=== PATIENT | female | born 1945 | race Caucasian/White ===

== ENCOUNTER 2022-05-31 18:01 | Emergency (ER) | payer BC ==
[2022-05-31 18:30] LABS: Urine Blood Trace-lysed (Negative); Urine Glucose Negative (Negative); Urine Protein Negative (Negative); Urine Specific Gravity 1.015 (1.005-1.030)
[2022-05-31] MEDS ORDERED: ONDANSETRON 4 MG/2 ML VIAL ONE (18:51)
[2022-05-31] MEDS ORDERED: NA CHLORIDE 0.9% 1,000 ML ONE (18:51)
[2022-05-31] MEDS ORDERED: KETOROLAC 30 MG/ML INJ ONE (18:51)
[2022-05-31 18:52] LABS: Urine Bacteria <20 /HPF (<20); Urine Mucus Slight /HPF (None Seen); Urine RBC <5 /HPF (None Seen)
[2022-05-31 19:06] LABS: Absolute Lymphocytes (CBC) 2.5 K/uL (0.7-4.9); Hematocrit 34.4 % (36.0-45.0); Lymphocytes % 33.8 % (15.3-44.8); MPV 6.9 fL (7.6-11.3); RBC Red Blood Cell Count 3.86 M/uL (3.86-4.86)
[2022-05-31 19:10] LABS: Albumin 3.3 g/dL (3.4-5.0); Bilirubin Total 0.3 mg/dL (0.2-1.0); Potassium 3.9 mmol/L (3.5-5.1); Protein, Total 6.8 g/dL (6.4-8.2)
--- NOTE | 2022-05-31 20:06 | RAD REPORT ---
EXAM DESCRIPTION: CTAbdomen Pelvis W Contrast - 05/31/2022 7:58 pm CLINICAL HISTORY: Abdominal pain. flank pain COMPARISON: No comparisons TECHNIQUE: Biphasic CT imaging of the abdomen and pelvis was performed with 100 ml non-ionic IV cont rast. All CT scans are performed using dose optimization technique as appropriate and may include automated exposure control or mA/KV adjustment according to patient size. FINDINGS: The lung bases are clear. The liver, spleen, pancreas, adrenal glands and kidneys are within normal limits. No bowel obstruction, free air, free fluid or abscess. Significant fecal retention is seen in the col on. Sigmoid diverticulosis coli without diverticulitis. No evidence of significant lymphadenopathy. Aortoiliac atherosclerosis. Mild degenerative changes. IMPRESSION: No acute intra-abdominal or pelvic finding.
--- NOTE | 2022-05-31 20:29 | ER ---
Nurse's Notes [facility] Name: Jeannie Geronimo Age: 76 yrs Sex: Female : 1945 Arrival Date: 05/31/2022 Time: 18:07 Bed 5 Private MD: Diagnosis: Strain of muscle, fascia and tendon of lower back Presentation: 05/31 18:14 Chief complaint: Patient's son or daughter states: for a month she has had a pain on iw right back , she was on amoxicillin for UTI, was still having pain and had urine tested yesterday and was told she still has a UTI , it was sent for culture , ;last night she was having shivers and headache. Coronavirus screen: At this time, the client does not indicate any symptoms associated with coronavirus-19. Ebola Screen: Patient negative for fever greater than or equal to 101.5 degrees Fahrenheit, and additional compatible Ebola Virus Disease symptoms Patient denies exposure to infectious person. Patient denies travel to an Ebola-affected area in the 21 days before illness onset. No symptoms or risks identified at this time. Initial Sepsis Screen: Does the patient meet any 2 criteria? No. Patient's initial sepsis screen is negative. Does the patient have a suspected source of infection? No. Patient's initial sepsis screen is negative. Risk Assessment: Do you want to hurt yourself or someone else? Patient reports no desire to harm self or others. Onset of symptoms was April 2022. 18:14 Method Of Arrival: Ambulatory iw 18:14 Acuity: YAHIR 3 iw Historical: - Allergies: 18:17 No Known Allergies; iw - Home Meds: 18:17 atorvastatin oral [Active]; iw 18:19 gabapentin oral [Active]; calcium [Active]; iw - PMHx: 18:17 Hypercholesterolemia; Anxiety; iw - PSHx: 18:17 hysterectomy; iw Screenin:33 [facility] ED Fall Risk Assessment (Adult) History of falling in the last 3 months, mb9 including since admission No falls in past 3 months (0 pts) Confusion or Disorientation No (0 pts) Intoxicated or Sedated No (0 pts) Impaired Gait No (0 pts) Mobility Assist Device Used No (0 pt) Altered Elimination No (0 pt) Score/Fall Risk Level 0 - 2 = Low Risk Oriented to surroundings, Maintained a safe environment, Educated pt \T\ family on fall prevention, incl call for assistance when getting out of bed. Abuse screen: Denies threats or abuse. Nutritional screening: No deficits noted. Tuberculosis screening: No symptoms or risk factors identified. Assessment: 18:31 General: Appears uncomfortable, Behavior is cooperative. Pain: Complains of pain in mb9 right flank Pain radiates to abdomen Pain currently is 10 out of 10 on a pain scale. Quality of pain is described as aching, sharp, shooting, Is intermittent, Alleviated by nothing. Noted to be grimacing. Neuro: Hinojosa Agitation-Sedation Scale (RASS): 0 - Alert and Calm Level of Consciousness is awake, alert, obeys commands, Oriented to person, place, time, situation, Appropriate for age. Cardiovascular: Heart tones S1 S2 present Capillary refill < 3 seconds is brisk Patient's skin is warm and dry. Rhythm is regular. Respiratory: Airway is patent Respiratory effort is even, unlabored, Respiratory pattern is regular, symmetrical, Breath sounds are clear bilaterally. GI: Abdomen is flat, non-distended, Bowel sounds present X 4 quads. Abd is soft Abdomen is tender to palpation in right lower quadrant and left lower quadrant. : Reports burning with urination, urgency, currently being treated for UTI. EENT: No signs and/or symptoms were reported regarding the EENT system. Derm: Skin is pink, warm \T\ dry. Musculoskeletal: Range of motion: intact in all extremities. 19:50 Reassessment: pt taken to CT via stretcher. mb9 19:59 Reassessment: No changes from previously documented assessment. Patient and/or family mb9 updated on plan of care and expected duration. Pain level reassessed. Patient is alert, oriented x 3, equal unlabored respirations, skin warm/dry/pink. Patient denies pain at this time. Patient states feeling better. Patient states symptoms have improved. 20:39 Reassessment: Patient appears in no apparent distress at this time. Patient and/or jb4 family updated on plan of care and expected duration. Pain level reassessed. Patient is alert, oriented x 3, equal unlabored respirations, skin warm/dry/pink. Vital Signs: 18:14 BP 138 / 56; Pulse 98; Resp 16; Temp 97.6; Pulse Ox 98% on R/A; iw 18:54 BP 118 / 79; Pulse 88; Resp 17; Pulse Ox 97% ; mb9 19:58 BP 122 / 57; Pulse 66; Resp 16; Pulse Ox 99% on R/A; mb9 ED Course: 18:07 Patient arrived in ED. rg4 18:10 [facility] Ascencio [facility] sb4 18:10 Yasmani Shirley MD is Attending Physician. sb4 18:17 Triage completed. iw 18:17 Arm band placed on. iw 18:20 Placed in gown. Bed in low position. Call light in reach. Side rails up X 1. Client mb9 placed on continuous cardiac and pulse oximetry monitoring. NIBP monitoring applied. Door closed. Noise minimized. Warm blanket given. 18:23 Estephania Kathleen, RN is Primary Nurse. ph 18:30 Inserted saline lock: 18 gauge in right antecubital area, using aseptic technique. mb9 Blood collected. 18:54 CBC with Diff Sent. mb9 18:54 CMP Sent. mb9 18:54 Lipase Sent. mb9 19:57 No provider procedures requiring assistance completed. mb9 19:59 CT Abd/Pelvis - IV Contrast Only In Process Unspecified. EDMS 20:15 Desiree waggoner, ELYSE is Primary Nurse. pf1 20:28 Robin Knowles MD is Referral Physician. sb4 20:39 IV discontinued, intact, bleeding controlled, No redness/swelling at site. Pressure jb4 dressing applied. Administered Medications: 18:42 Drug: NS 0.9% 1000 ml Route: IV; Rate: 1 bolus; Site: right antecubital; mb9 19:00 Follow up: IV Status: Completed infusion; IV Intake: 1000ml pf1 18:43 Drug: Zofran (Ondansetron) 4 mg Route: IVP; Site: right antecubital; mb9 19:57 Follow up: Response: No adverse reaction mb9 18:49 Drug: TORadol - (ketorolac) 15 mg Route: IVP; Site: right antecubital; mb9 19:57 Follow up: Response: No adverse reaction mb9 Medication: 18:55 VIS not applicable for this client. mb9 Intake: 19:00 IV: 1000ml; Total: 1000ml. pf1 Outcome: 20:28 Discharge ordered by . sb4 20:39 Discharged to home ambulatory. jb4 20:39 Condition: stable 20:39 Discharge instructions given to patient, Instructed on discharge instructions, follow up and referral plans. medication usage, Demonstrated understanding of instructions, follow-up care, medications, Prescriptions given X 1. 20:40 Patient left the ED. jb4 Signatures: Dispatcher [employer] EDMS Maria Del Carmen Nagel, Estephania Vidales RN, RN RN ph Garcia, Rubi rg4 Sudhakar Quintero RN RN jb4 Brown, Sophia, PA-C PA-C sb4 Breneman, Mary Beth, RN RN mb9 Desiree waggoner RN RN pf1 Corrections: (The following items were deleted from the chart) 19:59 19:58 BP 143 / 78; Pulse 74bpm; Resp 16bpm; Pulse Ox 100% RA; mb9 mb9 20:02 19:59 Reassessment: No changes from previously documented assessment. Patient and/or mb9 family updated on plan of care and expected duration. Pain level reassessed. Patient is alert, oriented x 3, equal unlabored respirations, skin warm/dry/pink. mb9
--- NOTE | 2022-05-31 20:30 | EDPHYS ---
Physician Documentation [facility] Name: Jeannie Geronimo Age: 76 yrs Sex: Female : 1945 Arrival Date: 05/31/2022 Time: 18:07 Bed 5 Private MD: ED Physician Yasmani Shirley HPI: 05/31 18:35 This 76 yrs old Female presents to ER via Ambulatory with complaints of Urinary Problem.sb4 18:35 Onset: The symptoms/episode began/occurred 1 month(s) ago. Associated signs and sb4 symptoms:. Patient reports that she has been experiencing right sided flank pain for 1 month now. She was first diagnosed with a UTI and prescribed amoxicillin. Her pain has not gotten any better. She denies any urinary symptoms. She saw her PCP yesterday who repeated the UA and culture. She states the pain became worse last night.. Historical: - Allergies: 18:17 No Known Allergies; iw - Home Meds: 18:17 atorvastatin oral [Active]; iw 18:19 gabapentin oral [Active]; calcium [Active]; iw - PMHx: 18:17 Hypercholesterolemia; Anxiety; iw - PSHx: 18:17 hysterectomy; iw ROS: 18:35 Constitutional: Negative for fever, chills, and weight loss, Eyes: Negative for injury, sb4 pain, redness, and discharge, ENT: Negative for injury, pain, and discharge, Neck: Negative for injury, pain, and swelling, Cardiovascular: Negative for chest pain, palpitations, and edema, Respiratory: Negative for shortness of breath, cough, wheezing, and pleuritic chest pain, Skin: Negative for injury, rash, and discoloration, Neuro: Negative for headache, weakness, numbness, tingling, and seizure. 18:35 Abdomen/GI: Positive for nausea, vomiting, Negative for abdominal pain, diarrhea, constipation. 18:35 : Positive for flank pain, Negative for urinary symptoms. Exam: 18:35 Constitutional: This is a well developed, well nourished patient who is awake, alert, sb4 and in no acute distress. Head/Face: Normocephalic, atraumatic. Eyes: Pupils equal round and reactive to light, extra-ocular motions intact. Periorbital areas with no swelling, redness, or edema. ENT: Mucous membranes moist. Chest/axilla: Normal chest wall appearance and motion. Nontender with no deformity. No lesions are appreciated. Cardiovascular: Regular rate and rhythm with a normal S1 and S2. Respiratory: Lungs have equal breath sounds bilaterally, clear to auscultation and percussion. No rales, rhonchi or wheezes noted. No increased work of breathing, no retractions or nasal flaring. Abdomen/GI: Soft, non-tender, no distension. Skin: Warm, dry with normal turgor. Normal color with no rashes, no lesions, and no evidence of cellulitis. 18:35 : CVA tenderness, on the right. Vital Signs: 18:14 BP 138 / 56; Pulse 98; Resp 16; Temp 97.6; Pulse Ox 98% on R/A; iw 18:54 BP 118 / 79; Pulse 88; Resp 17; Pulse Ox 97% ; mb9 19:58 BP 122 / 57; Pulse 66; Resp 16; Pulse Ox 99% on R/A; mb9 MDM: 18:27 Patient medically screened. sb4 18:38 Differential diagnosis: Nephrolithiasis, pyelonephritis, hydronephrosis, muscle strain. sb4 20:26 Data reviewed: vital signs, nurses notes, lab test result(s), radiologic studies, CT sb4 scan, and as a result, I will discharge patient. Historians other than the Patient: Daughter/Son: daughter. Response to treatment: the patient's symptoms have markedly improved after treatment, and as a result, I will discharge patient. 05/31 18:31 Order name: Urine Dipstick-Ancillary; Complete Time: 18:34 EDMS 05/31 18:34 Order name: Urine Microscopic Only; Complete Time: 19:11 sb4 05/31 18:35 Order name: CT Abd/Pelvis - IV Contrast Only; Complete Time: 20:15 sb4 05/31 18:35 Order name: CBC with Diff; Complete Time: 19:29 sb4 05/31 18:35 Order name: CMP; Complete Time: 19:11 sb4 05/31 18:35 Order name: Lipase; Complete Time: 19:11 sb4 05/31 18:35 Order name: IV Saline Lock; Complete Time: 18:53 sb4 05/31 18:35 Order name: Labs collected and sent; Complete Time: 18:53 sb4 Administered Medications: 18:42 Drug: NS 0.9% 1000 ml Route: IV; Rate: 1 bolus; Site: right antecubital; mb9 19:00 Follow up: IV Status: Completed infusion; IV Intake: 1000ml pf1 18:43 Drug: Zofran (Ondansetron) 4 mg Route: IVP; Site: right antecubital; mb9 19:57 Follow up: Response: No adverse reaction mb9 18:49 Drug: TORadol - (ketorolac) 15 mg Route: IVP; Site: right antecubital; mb9 19:57 Follow up: Response: No adverse reaction mb9 Disposition Summary: 05/31/22 20:28 Discharge Ordered Location: Home sb4 Problem: an ongoing problem sb4 Symptoms: have improved sb4 Condition: Stable sb4 Diagnosis - Strain of muscle, fascia and tendon of lower back sb4 Followup: sb4 - With: Robin Knowles MD - When: 2 - 3 days - Reason: Recheck today's complaints, Continuance of care, Re-evaluation by your physician Discharge Instructions: - Discharge Summary Sheet sb4 - Low Back Sprain or Strain Rehab-SportsMed sb4 Forms: - Medication Reconciliation Form sb4 - Thank You Letter sb4 - Antibiotic Education sb4 - Prescription Opioid Use sb4 Prescriptions: - ketorolac 10 mg Oral tablet - take 1 tablet by ORAL route every 4-6 hours not to exceed 40 mg in 24hrs; 30 sb4 tablet; Refills: 0, Product Selection Permitted Signatures: Dispatcher [employer] Maria Del Carmen Mallory RN RN iw Brown, Sophia, PA-C PA-C sb4 Jennie Bundy RN RN mb9 Desiree waggoner RN pf1
[2022-05-31 20:47] VITALS: TEMP 97.6
[2022-05-31 20:50] VITALS: BP 122/57; O2SAT 99
== END 2022-05-31 20:40 | disposition home or self-care (01) ==
LOC: ER 18:01
DX: S39.012A Strain of muscle, fascia and tendon of lower back, initial encounter (principal)
CPT/HCPCS: 85025; 36415; 83690; 80053; 74177; 96375; 96374; 99284; Q9967; J7030; J2405; 81003; 81015